=== PATIENT | female | born 1945 | race Caucasian/White ===

== ENCOUNTER 2016-06-26 12:26 | Observation (INO) | payer BC ==
--- NOTE | ~2016-06-26 | HP ---
History And Physical [facility] [id number] [place]. [address] NAME: OMID HER : 49 STATUS : ADM Kylie PAT#: [id number] AGE: 71 ADM/REG DATE : 06/26/16 MR#: [id number] REPORT SERV DATE: 06/26/16 DICTATED BY: FABIOLA CATALAN DATE: 06/26/16 REPORT STATUS : Draft TRANSCRIBED BY: MODVesta DATE: 06/26/16 DATE OF ADMISSION: 06/26/2016 CHIEF COMPLAINT: Chest pain and dyspnea on exertion. HISTORY OF PRESENT ILLNESS: This is a 71-year-old female with history of atypical chest pain in the past, status post abnormal nuclear stress test in 11/2014 secondary to chest pain and abnormal EKG, who went for a cardiac catheterization on 11/27/2014 with moderate non-flow limiting disease within the LAD. She states dyspnea on exertion since that time, but this has been increased over the last two to three weeks accompanied with midsternal chest pain. Chest pain can occur with exertion or at rest and typically lasts seconds. Her dyspnea on exertion has been increased over the last couple of weeks, and she is also complaining of increasing weakness and fatigue and has not been able to do her normal activities. She saw her primary care physician today to follow up on a chest x-ray that was abnormal and she had some jaw and neck pain, and they performed an EKG. EKG reviewed by myself from today does not show any signs of ischemia, but does indicate on the reading, possible septal infarct. EKG at our hospital does not indicate this. The patient also had an EKG from Dr[facility] on the , which did show some T-wave inversions in the lateral leads. The patient has been seeing a primary care physician for a productive cough, which she describes having white sputum that has been going on for a couple of years, but also worse in the couple of weeks. There were some abnormalities on her chest x-ray on the of this month indicating possible pulmonary edema versus an atypical pneumonia. Chest x-ray here in the ER is not very remarkable showing possibly some left basilar atelectasis versus an early infiltrate. The patient denies any fever or chills. She does have a history of PVCs, which have also been noticed on EKG and states some increased palpitations over the weekend, but she typically does not feel the PVCs. She also mentions a 3-pound weight gain in the last 10 days, but no edema. She does admit to waking at night with shortness of breath and sometimes sleeping with the head of her bed elevated. She has had no chest pain waking her from sleep at night. Denies any significant dizziness, presyncope, one-sided weakness, or changes in speech. She has been undergoing eye exams for some occasional blurred vision. MEDICAL HISTORY: 1. Hypertension. 2. Hyperlipidemia. 3. Insomnia. 4. Degenerative disk disease, this looks fine. 5. Type 2 diabetes mellitus, currently diet controlled. 6. History of GI bleed secondary to peptic ulcer disease in 1998. 7. PVCs. 8. Depression. 9. Nonobstructive coronary artery disease by cardiac catheterization on 11/27/2014 with non-flow limiting disease within the ostial to proximal segment of the LAD with IFR 0.94. This is following an abnormal stress test where she had chest pain and EKG changes. History And Physical [address] [address] NAME: OMID HER : 49 STATUS : ADM Kylie PAT#: [id number] AGE: 71 ADM/REG DATE : 06/26/16 MR#: [id number] REPORT SERV DATE: 06/26/16 DICTATED BY: FABIOLA CATALAN DATE: 06/26/16 REPORT STATUS : Draft TRANSCRIBED BY: DEBBIE DATE: 06/26/16 SURGICAL HISTORY: 1. Total abdominal hysterectomy with BSO. 2. Cholecystectomy. 3. Appendectomy. 4. Parathyroid surgery. HOME MEDICATIONS: Lipitor 20 at bedtime, Coreg 6.25 b.i.d., coenzyme Q10 100 daily, Lexapro 10 mg daily, Ativan 0.5 mg daily p.r.n. anxiety, losartan 100 mg daily, melatonin 5 mg at bedtime p.r.n., Mobic 15 mg daily p.r.n., probiotic caps daily, Phenergan 12.5 mg daily p.r.n. nausea and vomiting. ALLERGIES: NO KNOWN DRUG ALLERGIES. SOCIAL HISTORY: The patient is . She has never smoked. Denies alcohol use. She has not exercised in the last couple of years secondary to her significant dyspnea. FAMILY HISTORY: Father with CAD and open heart surgery in his 50s, at age 64 of CVA. REVIEW OF SYSTEMS: Negative except as indicated above. PHYSICAL EXAMINATION: VITAL SIGNS: Blood pressure 170/61, now in the 110s systolic after nitro paste administered; pulse 73; temperature 98.0; pulse oximetry 95% room air. GENERAL: Well developed, well nourished, in no acute distress HEENT: Anicteric. Normal EOM. Head normocephalic. PERRLA, no xanthelasma. NECK: Supple. No JVD. Carotids normal without bruits. LUNGS: Clear to auscultation bilaterally anterior and posterior. Respirations even and unlabored. CARDIAC: S1, S2 regular rate and rhythm. No murmurs, rubs, or gallops. No chest wall tenderness. ABDOMEN: Normal bowel sounds. Soft and nontender to palpation. No masses or organomegaly. EXTREMITIES: No peripheral edema. DP/PT and radial pulses palpable bilaterally. No clubbing or cyanosis. SKIN: Warm and dry. Normal turgor. No pallor or cyanosis. MUSCULOSKELETAL: Moving all extremities x4. Normal muscle strength. NEURO/PSYCH: Alert and oriented with appropriate affect. LABORATORY DATA: Sodium 142, potassium 4.4, BUN 15, creatinine 1.0. White blood count 6.2, hemoglobin 13.3, hematocrit 40.6, platelets 272. Troponin less than 0.02. BNP 28.1. Chest x-ray shows left basilar atelectasis versus early infiltrate. EKG interpreted by myself indicates normal sinus rhythm with PVCs and nonspecific ST segments. ASSESSMENT AND PLAN: 1. Substernal chest pain in this 71-year-old female with history of nonobstructive coronary artery disease by cardiac catheterization in 2014. Her chest pain is atypical History And Physical [address] [address] NAME: OMID HER : 49 STATUS : ADM Kylie PAT#: [id number] AGE: 71 ADM/REG DATE : 06/26/16 MR#: [id number] REPORT SERV DATE: 06/26/16 DICTATED BY: FABIOLA CATALAN DATE: 06/26/16 REPORT STATUS : Draft TRANSCRIBED BY: MODL DATE: 06/26/16 and that only lasts seconds, is often associated with exertion, but also occurs at rest. There is some possible dynamic EKG changes noted on an EKG a couple weeks ago, but this is not necessarily with chest pain. Troponins have been negative. Initially. We will plan to admit her to our chest pain observation unit with serial enzymes and likely proceed with a nuclear stress test in the morning to further differentiate any for any ischemia. Consideration will need to be taken in reference to the patient's last abnormal stress test. 2. Dyspnea on exertion with a negative BNP. I do not appreciate any evidence of pulmonary edema on the patient's exam or on chest x-ray. Mildly abnormal chest x-ray findings with a negative white blood count and the patient is afebrile. I will plan to check an echocardiogram in the morning. 3. Fatigue and weakness. The patient has not recently had thyroid levels checked. I will send for a TSH and T4. 4. Nonobstructive coronary artery disease by cardiac catheterization in 11/2014 with a 40% ostial LAD and IFR 0.94. Plan as above. The patient has been compliant with her beta nikita and statin therapy. 5. Hypertension. Currently controlled. Continue home medications with the exception of her carvedilol, which we will hold tonight for stress testing in the morning. 6. Mixed hyperlipidemia. The patient is on statin therapy. We will continue. 7. Type 2 diabetes mellitus, appears controlled. DBT/MODL Fabiola Catalan NP / [id number] CC: ARLET Cruz M.D.
[2016-06-26 12:26] LABS: BASOPHILS 1.1 %; BASOPHILS ABSOLUTE 0.07 10/3/uL (0.0-0.16); EOSINOPHILS 2.1 %; EOSINOPHILS ABSOLUTE 0.13 10/3/uL (0.0-0.53); ER CBC TAT 0 Hrs 03 Mins; HEMATOCRIT 40.6 % (36.0-48.0); HEMOGLOBIN 13.3 g/dL (12.0-16.0); LYMPHOCYTES 40.5 %; MANUAL DIFF NO %; MEAN CORPUS HGB CONC 32.8 g/dL (32.0-36.0); MEAN CORPUSCULAR HEMOGLOB 28.3 pg (26.0-34.0); MEAN CORPUSCULAR VOLUME 86.4 fL (80-100); MEAN PLATELET VOLUME 10.2 fL (9.2-13.0); MONOCYTES 8.4 %; MONOCYTES ABSOLUTE 0.52 10/3/uL (0.21-1.20); NEUTROPHILS 47.9 %; NEUTROPHILS ABSOLUTE 2.95 10/3/uL (2.02-8.40); PLATELET COUNT 252 10/3/uL (150-400); RBC DISTRIBUTION WIDTH 13.3 % (12.0-16.0); WHITE BLOOD CELLS 6.2 10/3/uL (4.5-10.5)
[~2016-06-26 12:26] MED LIST: ASAB PO; COQ10100 MG OR; COREG6 PO; COZAAR100 MG PO; GLUCPH PO; LEXAPRO10 PO; MOBIC15 MG PO; NITROSTAT0.4 MG SL; NORV5 PO; TRIAMCINOLON0.025 % EX; VYTORIN 10/40 T1 TAB PO
[2016-06-26 12:37] LABS: INTERNATIONAL NORMAL RATI 1.1 UNITS (-); PROTIME (NOT ORD) 13.7 SEC (12.0-14.5)
[2016-06-26 12:42] LABS: A/G RATIO 0.9 (0.7-1.9); ALBUMIN 3.8 G/DL (3.5-5.0); ALKALINE PHOSPHATASE 85 U/L (45-117); BUN (BLOOD UREA NITROGEN) 15 MG/DL (6-23); CALCIUM, SERUM 8.8 MG/DL (8.5-10.4); CHLORIDE, SERUM 109 MMOL/L (96-112); CO2 (CARBON DIOXIDE) 25 MMOL/L (24-34); GFR AFRICAN AMERICAN 67 ML/MIN (>=60); GFR NON AFRICAN AMERICAN 57 ML/MIN (>=60); GLOBULIN 4.1 G/DL (2.5-4.1); GLUCOSE, SERUM 106 MG/DL (60-99); POTASSIUM, SERUM 4.4 MMOL/L (3.5-5.3); SGOT(AST) 19 U/L (5-40); SGPT(ALT) 31 U/L (5-65); SODIUM, SERUM 142 MMOL/L (135-148); TOTAL BILIRUBIN 0.4 MG/DL (0-1.2); TOTAL PROTEIN 7.9 G/DL (6.0-8.5); TROPONIN I <0.02 NG/ML (<0.05)
[2016-06-26] MEDS ORDERED: LEXAPRO10 PO (13:25)
[2016-06-26] MEDS ORDERED: LIPITOR20 PO (13:25)
[2016-06-26] MEDS ORDERED: COREG6 PO (13:25)
[2016-06-26] MEDS ORDERED: MOBIC15 MG PO (13:26)
[2016-06-26] MEDS ORDERED: COZAAR100 MG PO (13:26)
[2016-06-26] MEDS ORDERED: ATV.5 PO (13:26)
[2016-06-26] MEDS ORDERED: MELATONIN5 M1 PO (13:26)
[2016-06-26] MEDS ORDERED: PROBIOTIC PO (13:27)
[2016-06-26] MEDS ORDERED: CO Q-10100 MG PO (13:29)
[2016-06-26] MEDS ORDERED: PR12.5 PO (13:29)
[2016-06-26 16:18] LABS: FREE T4 0.86 NG/DL (0.76-1.46)
== END 2016-06-27 12:32 | disposition home or self-care (01) ==
LOC: ER 12:26 → CDU2 13:44
PROVIDERS: Emergency Medicine
DX: R07.9 Chest pain, unspecified (principal); I10 Essential (primary) hypertension; E78.5 Hyperlipidemia, unspecified; G47.00 Insomnia, unspecified; E11.9 Type 2 diabetes mellitus without complications; I49.3 Ventricular premature depolarization; F32.9 Major depressive disorder, single episode, unspecified; I25.10 Atherosclerotic heart disease of native coronary artery without angina pectoris; Z90.710 Acquired absence of both cervix and uterus; Z90.722 Acquired absence of ovaries, bilateral; Z90.49 Acquired absence of other specified parts of digestive tract; Z98.890 Other specified postprocedural states
CPT/HCPCS: 71010; 78452; 80053; 82962; 83880; 84439; 84443; 84484; 85025; 85610; 87040; 93005; 93017; 93306; 99285; A9270-GY; A9502; G0378